=== PATIENT | male | born 1980 | race Caucasian/White ===

== ENCOUNTER 2023-12-07 12:29 | Emergency (ER) | payer SELFPAY ==
[2023-12-07] MEDS ORDERED: DOXYCYCLINE 100 MG CAP PO ONE (12:58)
[2023-12-07] MEDS ORDERED: MORPHINE 4 MG/ML SYR ONE (12:58)
[2023-12-07] MEDS ORDERED: KETOROLAC 30 MG/ML INJ ONE (12:58)
[2023-12-07] MEDS ORDERED: ONDANSETRON 4 MG/2 ML VIAL ONE (12:58)
[2023-12-07] MEDS ORDERED: NA CHLORIDE 0.9% 1,000 ML ONE (12:59)
[2023-12-07] MEDS ORDERED: TDAP (DIPHTH,PERTUSS(ACELL),TET VAC) 0.5 ML VIAL IMVAC ONE (12:59)
[2023-12-07 13:04] LABS: Absolute Eosinophils 0.2 K/uL (0-0.5); Absolute Lymphocytes (CBC) 1.8 K/uL (0.7-4.9); Absolute Monocytes 0.4 K/uL (0.1-1.3); Absolute Neutrophil 4.3 K/uL (1.8-8.0); Basophils % 0.5 % (0-1.3); Hematocrit 38.8 % (39.6-49.0); Hemoglobin 12.8 g/dL (13.6-17.9); Lymphocytes % 27.2 % (15.3-44.8); MCH 30.3 pg (27.0-35.0); MCHC 33.1 g/dL (32.0-36.0); MCV 91.5 fL (80-100); MPV 8.2 fL (7.6-11.3); Monocytes % 5.8 % (3.3-12.3); Neutrophils % 63.5 % (41.7-73.7); Platelets 252 thou/uL (152-406); RBC Red Blood Cell Count 4.24 M/uL (4.33-5.43); Red Cell Distribution Width 13.3 % (12.1-15.2)
[2023-12-07 13:42] LABS: Albumin/Globulin Ratio 1.1 (1.1-1.8); Anion Gap 9.2 mEq/L (5.0-15.0); Bilirubin Total 0.4 mg/dL (0.2-1.0); Globulin 3.7 g/dL (2.3-3.5); Potassium 4.2 mEq/L (3.5-5.1); Protein, Total 7.7 g/dL (6.4-8.2)
[2023-12-07] MEDS ORDERED: HYDROMORPHONE HCL 1 MG/ML INJ ONE (13:50)
--- NOTE | 2023-12-07 14:15 | RAD REPORT ---
EXAM DESCRIPTION: RAD - Tib Fib Left - 12/07/2023 2:07 pm CLINICAL HISTORY: PAIN COMPARISON: No comparisons FINDINGS/IMPRESSION: No acute fracture. No malalignment. No significant focal degenerative changes.
--- NOTE | 2023-12-07 14:21 | ER ---
Nurse's Notes [facility] Name: Orlando Munoz Age: 43 yrs Sex: Male : 1980 Arrival Date: 12/07/2023 Time: 12:29 Bed 15 Private MD: Diagnosis: Toxic effect of contact with stingray, accidental (unintentional), initial encounter-left lower extremity Presentation: 12/06 12:28 Chief complaint: Chief complaint: EMS states[place] BY db STING RAY TO LEFT LOWER LEG AND FOOT. NOTED PUNCTURE WOUND TO LEFT LEG. 12:43 Coronavirus screen: Client denies travel out of the [place] in the last 14 days. At this db time, the client does not indicate any symptoms associated with coronavirus-19. Ebola Screen: Patient negative for fever greater than or equal to 101.5 degrees Fahrenheit, and additional compatible Ebola Virus Disease symptoms Patient denies exposure to infectious person. Patient denies travel to an Ebola-affected area in the 21 days before illness onset. No symptoms or risks identified at this time. Initial Sepsis Screen: Does the patient meet any 2 criteria? No. Patient's initial sepsis screen is negative. Does the patient have a suspected source of infection? No. Patient's initial sepsis screen is negative. Risk Assessment: Do you want to hurt yourself or someone else? Patient reports no desire to harm self or others. Onset of symptoms was December 07, 2023. Care prior to arrival: Medication(s) given: 50 MCG FENTANYL, 50 MG BENADRYL AND 250 ML BOLUS NS ALL IV IV initiated. 18 GA, in the left antecubital area, Glucose check: 120. Mechanism of Injury: Penetrating trauma inflicted by STING RAY TAIL. 12:43 Method Of Arrival: EMS: [facility] db 12:43 Acuity: JULITO 3 db Triage Assessment: 12:28 General: Appears in no apparent distress. uncomfortable, Behavior is cooperative, db anxious. Pain: Complains of pain in left foot and left leg. Neuro: Level of Consciousness is awake, alert, obeys commands, Oriented to person, place, time, situation. Respiratory: Airway is patent Respiratory effort is even, unlabored, Respiratory pattern is regular, symmetrical. 12:28 Derm: Wound noted left leg Wound is PUNCTURE WOUND. db Historical: - Allergies: 12:47 No Known Allergies; db - Immunization history:: Adult Immunizations unknown. - Infectious Disease History:: Denies. - Social history:: Smoking status: Patient denies any tobacco usage or history of. Screenin:48 [facility] ED Fall Risk Assessment (Adult) History of falling in the last 3 months, db including since admission No falls in past 3 months (0 pts) Confusion or Disorientation No (0 pts) Intoxicated or Sedated No (0 pts) Impaired Gait No (0 pts) Mobility Assist Device Used No (0 pt) Altered Elimination No (0 pt) Score/Fall Risk Level 0 - 2 = Low Risk Oriented to surroundings, Maintained a safe environment. Abuse screen: Denies threats or abuse. Denies injuries from another. Nutritional screening: No deficits noted. Tuberculosis screening: No symptoms or risk factors identified. Assessment: 12:30 Reassessment: PATIENT FOOT PLACED IN WARM WATER. CLEANED WOUND WITH SALINE. db 12:48 Reassessment: Patient appears in no apparent distress at this time. Patient and/or db family updated on plan of care and expected duration. Pain level reassessed. Patient is alert, oriented x 3, equal unlabored respirations, skin warm/dry/pink. SEE TRIAGE FOR INITIAL ASSESSMENT. Neuro: Level of Consciousness is awake, alert, obeys commands, Oriented to person, place, time, situation. 13:55 Reassessment: Patient appears in no apparent distress at this time. Patient and/or db family updated on plan of care and expected duration. Pain level reassessed. Patient is alert, oriented x 3, equal unlabored respirations, skin warm/dry/pink. REPORTS PAIN NOT IMPROVING. NOTIFIED DR. SMART SEE [facility] FOR PAIN MEDICATION ADMINISTRATION. General: Appears in no apparent distress. uncomfortable, Behavior is calm, cooperative. Pain: Complains of pain in left leg Pain currently is 10 out of 10 on a pain scale. 14:46 Reassessment: Patient appears in no apparent distress at this time. Patient and/or db family updated on plan of care and expected duration. Pain level reassessed. Patient is alert, oriented x 3, equal unlabored respirations, skin warm/dry/pink. Vital Signs: 12:43 BP 107 / 92; Pulse 79; Resp 16; Temp 98.5(O); Pulse Ox 99% ; Weight 135.17 kg; Height 6 db ft. 3 in. ; Pain 9/10; 13:00 BP 114 / 80; Pulse 85; Resp 16; Pulse Ox 100% on R/A; db 14:00 BP 113 / 85; Pulse 80; Resp 16; Pulse Ox 99% on R/A; db 14:30 BP 102 / 68; Pulse 67; Resp 16; Pulse Ox 97% on R/A; db 12:43 Body Mass Index 37.25 (135.17 kg, 190.5 cm) db 12:43 Pain Scale: Adult db ED Course: 12:28 Arm band placed on Patient placed in an exam room. db 12:35 Patient arrived in ED. eb 12:42 Thong Smart MD is Attending Physician. lior 12:43 Chata Payan RN is Primary Nurse. db 12:46 Triage completed. db 12:48 Patient has correct armband on for positive identification. Bed in low position. Call db light in reach. Side rails up X 1. Pulse ox on. NIBP on. Warm blanket given. 12:50 Maintain EMS IV. Dressing intact. Good blood return noted. Site clean \T\ dry. Gauge \T\ db site: 18 G LEFT AC. 13:12 Lab(s) recollected, by me, sent to lab. db 14:08 Tib Fib Left XRAY In Process Unspecified. EDMS 14:21 Isaias Vargas MD is Referral Physician. [facility] 14:46 Provided Education on: DISCHARGE. db 14:46 No provider procedures requiring assistance completed. IV discontinued, intact, db bleeding controlled, No redness/swelling at site. Administered Medications: 12:55 Drug: Doxycycline PO 200 mg PO once Route: PO; db 14:48 Follow up: Response: No adverse reaction db 13:00 Drug: NS 0.9% IV 1000 ml IV at 1 bolus Per protocol; 1000 mL bolus Route: IV; Rate: 1 db bolus; Site: left antecubital; 13:55 Follow up: Response: No adverse reaction; IV Status: Completed infusion; IV Intake: db 1000ml 13:00 Drug: morphine IVP or IV 4 mg IVP once over 4 mins Route: IVP; Infused Over: 4 mins; db Site: left antecubital; 14:48 Follow up: Response: No adverse reaction db 13:00 Drug: Ondansetron IVP 4 mg IVP once; over 2 minutes Route: IVP; Site: left antecubital; db 14:48 Follow up: Response: No adverse reaction db 13:00 Drug: Ketorolac IVP 30 mg IVP once Route: IVP; Site: left antecubital; db 14:49 Follow up: Response: No adverse reaction db 13:10 Drug: Boostrix Tdap IM 0.5 ml IM once; as a single dose Route: IM; Site: left deltoid; db 14:47 Follow up: Response: (VIS) Vaccine information sheet provided today. Questions and/or db concerns addressed. VIS edition date: Nov 25, 2020.; No adverse reaction 13:55 Drug: HYDROmorphone IVP 1 mg IVP once Route: IVP; Site: left antecubital; db 14:47 Follow up: Response: No adverse reaction db Medication: 14:46 VIS not applicable for this client. Vaccine Information Statement (VIS) provided today. db Questions and/or concerns addressed. VIS edition date: November 25, 2020. Intake: 13:55 IV: 1000ml; Total: 1000ml. db Outcome: 14:21 Discharge ordered by MD. tinajero 14:46 Discharged to home ambulatory, with family, db 14:46 Condition: stable 14:46 Discharge instructions given to patient, Instructed on discharge instructions, follow up and referral plans. Prescriptions given X 3, 14:49 Patient left the ED. db Signatures: Dispatcher [employer] EDThong Menchaca MD MD cha Botello, Elizabeth eb Benton, Danielle, RN RN db Corrections: (The following items were deleted from the chart) 12:46 12:28 Chief complaint: db db 14:48 14:46 VIS not applicable for this client. db db
--- NOTE | 2023-12-07 14:21 | EDPHYS ---
Physician Documentation [facility] Name: Orlando Munoz Age: 43 yrs Sex: Male : 1980 Arrival Date: 12/07/2023 Time: 12:29 Bed 15 Private MD: ED Physician Thong Christianson HPI: 12/06 12:49 This 43 yrs old Female presents to ER via EMS with complaints of Puncture Wound To Foot.lior Historical: - Allergies: 12:47 No Known Allergies; db - Immunization history:: Adult Immunizations unknown. - Infectious Disease History:: Denies. - Social history:: Smoking status: Patient denies any tobacco usage or history of. ROS: 13:57 Constitutional: Negative for fever, chills, and weight loss, Eyes: Negative for injury, lior pain, redness, and discharge, ENT: Negative for injury, pain, and discharge, Neck: Negative for injury, pain, and swelling, Cardiovascular: Negative for chest pain, palpitations, and edema, Respiratory: Negative for shortness of breath, cough, wheezing, and pleuritic chest pain, Abdomen/GI: Negative for abdominal pain, nausea, vomiting, diarrhea, and constipation, Back: Negative for injury and pain, : Negative for injury, bleeding, discharge, and swelling, Neuro: Negative for headache, weakness, numbness, tingling, and seizure, Psych: Negative for depression, anxiety, suicide ideation, homicidal ideation, and hallucinations, Allergy/Immunology: Negative for hives, rash, and allergies, Endocrine: Negative for neck swelling, polydipsia, polyuria, polyphagia, and marked weight changes, Hematologic/Lymphatic: Negative for swollen nodes, abnormal bleeding, and unusual bruising, 13:57 MS/extremity: Positive for erythema, pain, tenderness, of the left leg, 13:57 Skin: Positive for puncture, Exam: 13:57 Constitutional: This is a well developed, well nourished patient who is awake, alert, lior and in no acute distress. Head/Face: Normocephalic, atraumatic. Eyes: Pupils equal round and reactive to light, extra-ocular motions intact. Lids and lashes normal. Conjunctiva and sclera are non-icteric and not injected. Cornea within normal limits. Periorbital areas with no swelling, redness, or edema. ENT: Nares patent. No nasal discharge, no septal abnormalities noted. Tympanic membranes are normal and external auditory canals are clear. Oropharynx with no redness, swelling, or masses, exudates, or evidence of obstruction, uvula midline. Mucous membranes moist. Neck: Trachea midline, no thyromegaly or masses palpated, and no cervical lymphadenopathy. Supple, full range of motion without nuchal rigidity, or vertebral point tenderness. No Meningismus. Chest/axilla: Normal chest wall appearance and motion. Nontender with no deformity. No lesions are appreciated. Cardiovascular: Regular rate and rhythm with a normal S1 and S2. No gallops, murmurs, or rubs. Normal PMI, no JVD. No pulse deficits. Respiratory: Lungs have equal breath sounds bilaterally, clear to auscultation and percussion. No rales, rhonchi or wheezes noted. No increased work of breathing, no retractions or nasal flaring. Abdomen/GI: Soft, non-tender, with normal bowel sounds. No distension or tympany. No guarding or rebound. No evidence of tenderness throughout. Back: No spinal tenderness. No costovertebral tenderness. Full range of motion. Male : Normal genitalia with no discharge or lesions. Skin: Warm, dry with normal turgor. Normal color with no rashes, no lesions, and no evidence of cellulitis. Neuro: Awake and alert, GCS 15, oriented to person, place, time, and situation. Cranial nerves II-XII grossly intact. Motor strength 5/5 in all extremities. Sensory grossly intact. Cerebellar exam normal. Normal gait. Psych: Awake, alert, with orientation to person, place and time. Behavior, mood, and affect are within normal limits. 13:57 Musculoskeletal/extremity: ROM: full active range of motion, full passive range of motion, limited active range of motion due to pain, limited passive range of motion due to pain, Circulation is intact in all extremities. Sensation intact. Compartment Syndrome exam of affected extremity: is normal. Weight bearing: able to fully bear weight, DVT Exam: negative Homans' sign noted on exam, no appreciated bluish discoloration, no increased warmth, pain, swelling, tenderness, erythema, Vital Signs: 12:43 BP 107 / 92; Pulse 79; Resp 16; Temp 98.5(O); Pulse Ox 99% ; Weight 135.17 kg; Height 6 db ft. 3 in. ; Pain 9/10; 13:00 BP 114 / 80; Pulse 85; Resp 16; Pulse Ox 100% on R/A; db 14:00 BP 113 / 85; Pulse 80; Resp 16; Pulse Ox 99% on R/A; db 14:30 BP 102 / 68; Pulse 67; Resp 16; Pulse Ox 97% on R/A; db 12:43 Body Mass Index 37.25 (135.17 kg, 190.5 cm) db 12:43 Pain Scale: Adult db MDM: 12:42 Patient medically screened. [facility] 13:58 Differential diagnosis: penetrating trauma, cellulitis. Data reviewed: vital signs, [facility] nurses notes, lab test result(s), radiologic studies, plain films. Consideration of Admission/Observation Escalation of care including admission/observation considered. Management of patient was discussed with the following:. I considered the following discharge prescriptions or medication management in the emergency department Medications were administered in the Emergency Department. See MAR. Independent interpretation of the following test(s) in the Emergency Department X-Ray: My interpretation is left tib fib. Test considered but Not performed: CT: no ct left tib fib. Care significantly affected by the following chronic conditions: none. Counseling: I had a detailed discussion with the patient and/or guardian regarding the historical points, exam findings, and any diagnostic results supporting the discharge/admit diagnosis, lab results, radiology results, the need for outpatient follow up. 12/06 12:48 Order name: CBC with Diff; Complete Time: 14:20 [facility] 12/06 12:48 Order name: Comprehensive Metabolic Panel; Complete Time: 14:20 [facility] 12/06 13:16 Order name: Tib Fib Left XRAY; Complete Time: 14:20 [facility] 12/06 12:48 Order name: Misc. Order: soak in hot water; Complete Time: 12:49 [facility] 12/06 13:09 Order name: Labs - recollect needed: recollect labs/ hemolyzed per Iman; Complete eb Time: 13:24 Administered Medications: 12:55 Drug: Doxycycline PO 200 mg PO once Route: PO; db 14:48 Follow up: Response: No adverse reaction db 13:00 Drug: NS 0.9% IV 1000 ml IV at 1 bolus Per protocol; 1000 mL bolus Route: IV; Rate: 1 db bolus; Site: left antecubital; 13:55 Follow up: Response: No adverse reaction; IV Status: Completed infusion; IV Intake: db 1000ml 13:00 Drug: morphine IVP or IV 4 mg IVP once over 4 mins Route: IVP; Infused Over: 4 mins; db Site: left antecubital; 14:48 Follow up: Response: No adverse reaction db 13:00 Drug: Ondansetron IVP 4 mg IVP once; over 2 minutes Route: IVP; Site: left antecubital; db 14:48 Follow up: Response: No adverse reaction db 13:00 Drug: Ketorolac IVP 30 mg IVP once Route: IVP; Site: left antecubital; db 14:49 Follow up: Response: No adverse reaction db 13:10 Drug: Boostrix Tdap IM 0.5 ml IM once; as a single dose Route: IM; Site: left deltoid; db 14:47 Follow up: Response: (VIS) Vaccine information sheet provided today. Questions and/or db concerns addressed. VIS edition date: Nov 25, 2020.; No adverse reaction 13:55 Drug: HYDROmorphone IVP 1 mg IVP once Route: IVP; Site: left antecubital; db 14:47 Follow up: Response: No adverse reaction db Disposition Summary: 12/07/23 14:21 Discharge Ordered Notes: Location: Home lior Problem: new lior Symptoms: have improved lior Condition: Stable lior Diagnosis - Toxic effect of contact with stingray, accidental (unintentional), initial lior encounter - left lower extremity(12/07/23 14:23) Followup: lior - With: Private Physician - When: 2 - 3 days - Reason: Recheck today's complaints, Continuance of care, Re-evaluation by your physician Followup: lior - With: Isaias Vargas MD - When: 2 - 3 days - Reason: Recheck today's complaints, Re-evaluation by your physician Discharge Instructions: - Discharge Summary Sheet lior - 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 lior - Puncture Wound lior - Puncture Wound, [id number] lior - 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, [id number] lior Forms: - Medication Reconciliation Form lior - Antibiotic Education lior - Prescription Opioid Use lior - Patient Portal Instructions lior - Leadership Thank You Letter [facility] Prescriptions: - acetaminophen-codeine 300-30 mg Oral tablet - take 2 tablet ORAL route every 6 hours as needed for pain; 20 tablet; Refills: lior 0, Product Selection Permitted - Doxycycline Hyclate 100 mg Oral Tablet - take 1 tablet ORAL route every 12 hours; 20 tablet; Refills: 0, Product lior Selection Permitted - Diclofenac Sodium 75 mg Oral tablet, delayed release (enteric coated) - take 1 tablet ORAL route 2 times per day; 2 tablet; Refills: 0, Product lior Selection Permitted Signatures: Dispatcher [employer] EDThong Menchaca MD MD cha Botello, Elizabeth eb Benton, Danielle, RN RN db Corrections: (The following items were deleted from the chart) 12:49 12:49 CBC+H.LAB.BRZ ordered. EDMS EDMS 12:49 12:49 COMPREHENSIVE METABOLIC PANEL+C.LAB.BRZ ordered. EDMS EDMS 13:17 13:17 Tib Fib Left+RAD.RAD.BRZ ordered. EDMS EDMS 14:23 14:21 Toxic effect of contact with stingray, accidental (unintentional), initial lior encounter lior
[2023-12-07 15:13] VITALS: TEMP 98.5
[2023-12-07 15:18] VITALS: BP 102/68; O2SAT 97
== END 2023-12-07 14:49 | disposition home or self-care (01) ==
LOC: ER 12:29
DX: S91.332A Puncture wound without foreign body, left foot, initial encounter (principal); T63.511A Toxic effect of contact with stingray, accidental (unintentional), initial encounter
CPT/HCPCS: 36415; 80053; 85025; 96361; 96372; 96374; 96375; 99284; J1170; J2405; J7030